=== PATIENT | female | born 1950 | race Caucasian/White ===

== ENCOUNTER 2016-04-23 09:12 | Emergency (ER) | payer MEDICARE, BC ==
[2016-04-23 10:52] VITALS: BP 144/82
--- NOTE | 2016-04-23 10:54 | ERNOTE ---
Medical Problem HPI - Narrative Date of Service: 04/23/16 - General Chief Complaint: General Assessment Time Seen by Provider: 04/23/16 10:35 Source: patient, RN notes reviewed Exam Limitations: no limitations - Immun/Allergies/Home Medications Immunizations: IMMUNIZATION HX Immunizations Up to Date No History of Influenza Vaccine No Hx Pneumococcal Vaccination Yes Allergies/Adverse Reactions: Allergies clindamycin Allergy (Verified 04/23/16 09:33) metronidazole Allergy (Verified 04/23/16 09:33) Sulfa (Sulfonamide Antibiotics) [Sulfa(Sulfonamide Antibiotics)] Allergy ( Verified 04/23/16 09:33) Home Medications: HOME MEDICATIONS Lansoprazole [Prevacid] 30 mg PO DAILY 04/25/12 [Last Taken Unknown] Sertraline HCl [Zoloft] 50 mg PO HS 04/25/12 [Last Taken 05/03/12 20:25] clonazePAM [Klonopin Generic] 1 mg PO HS 04/25/12 [Last Taken 04/05/12 20:30] metroNIDAZOLE [Metrogel 0.75%] 45 gm TP HS 04/25/12 [Last Taken Unknown] Acetaminophen [Tylenol] 650 mg PO Q4H PRN 05/04/12 [Last Taken 05/04/12 07:10] - History of Present History Narrative: 66 y/o female to ED for chills, sweats, body aches, sore throat and cough for 5 days. She had also been having diarrhea but this has subsided. She has taken various OTC cold and cough meds without improvement. She reports being concerned that she might have pneumonia as she feels much like she did when she had it a few years ago. She did not get a flu vaccine because she gets sick every time she gets one. Date (Duration): 04/19/16 Review of Systems - Review of Systems Constitutional: Present: chills, diaphoresis, fatigue, malaise EYE: Present: no symptoms reported ENT: Present: nose congestion, nasal drainage, sore throat. Absent: ear pain Respiratory: Present: shortness of breath, cough. Absent: wheezing Cardiology: Present: no symptoms reported Gastrointestinal/Abdominal: Present: nausea. Absent: vomiting, abdominal pain Genitourinary: Present: no symptoms reported Musculoskeletal: Present: muscle pain, joint pain Skin: Absent: rash, lesions Neurological: Present: headache. Absent: dizziness/light-headedness Endocrine: Present: no symptoms reported Hematologic/Lymphatic: Present: no symptoms reported Psych: Present: anxiety - Patient's Past Medical History Patient History - Medical: No pertinent hx Patient History - Cardiac/Respiratory: No pertinent hx Patient History - Cancer: No Hx of Cancer Patient History - Surgical Procedures: Hysterectomy Patient History - Other: None LMP (females 10-50): Menopausal - Social History Living Situations: home Psych History: No pertinent hx Smoking Status: Current every day smoker Cigarettes Packs Per Day: 0.8 Alcohol Use: none Drug Use: none - Immunizations Immunizations Up to Date: No Hx Pneumococcal Vaccination: Yes History of Influenza Vaccine: No Physical Exam - Physical Exam General Appearance: Present: wd/wn, alert, no apparent distress, anxious Eye Exam: Normal inspection: bilateral Ears, Nose, Throat: Present: hearing grossly normal, nasal congestion, pharyngeal erythema. Absent: abnormal TM (R), abnormal TM (L), sinus pain/ drainage, pharyngeal swelling Neck: Present: normal inspection, nontender, supple Respiratory: Present: no respiratory distress, no accessory muscle use, lungs clear, decreased breath sounds - mild, bilateral bases, expiration (prolonged) Cardiovascular/Chest: Present: regular rate, rhythm, no murmur, normal peripheral pulses Neurological Exam: Present: alert, oriented, normal mood/affect Skin Exam: Present: normal color, warm/dry ED Progress - Results and Orders Patient's Lab Results:: I have reviewed the patient's lab results. - Vital Signs Patient's Vital Signs:: I have reviewed the patient's vital signs. Vital Signs: Vital Signs 04/23/16 09:28 Temperature 37.4 C Pulse Rate 85 Respiratory 12 Rate Blood Pressure 142/67 O2 Sat by Pulse 95 Oximetry - Progress/Reassessment Chief Complaint: General Assessment Progress:: Unchanged Departure - Departure Clinical Impression: Influenza A Disposition: Home self-care Condition: Stable Instructions: Influenza, Adult, [id number] Additional Instructions: Tylenol and/or ibuprofen for pain/fever Nasal saline frequently Push fluids Robitussin DM (generic ok) for cough Follow up with your doctor if symptoms have not improved by the end of the week Referrals: Rashaun Plunkett DO [Primary Care Provider] -
--- OUTSIDE RECORDS SUMMARY | 2016-04-23 11:05 | XMS REPORT | Continuity of Care Document ---
:1950 Author Organization [facility] ([facility]) [place] [address] Phone [phone] Care Team Providers Name Role Phone Kathy Garcia Primary Care Provider [phone] Source Comments This disclosure is being made pursuant to the Care Everywhere program, applicable federal and state laws, and may not contain all informaitonavailable regarding this patient.[facility] ([facility]) Active Allergies and Adverse Reactions Allergen Noted Date Severity Reactions Comments Levofloxacin 12/20/2014 Nausea & Vomiting Metronidazole 12/20/2014 Nausea & Vomiting Sulfa (Sulfonamide Antibiotics) 12/20/2014 Urticaria (Hives) Current Medications Prescription Sig. Disp. Refills Start Date End Date Status estradiol (CLIMARA) Apply 0.0375 mg on Active 0.0375 mg/24 hr patch the skin every week SERTraline 50 mg tablet Take 50 mg by mouth Active daily clonazePAM 1 mg tablet Take 1 mg by mouth Active at bedtime multivitamin with Take 1 tablet by Active minerals tablet mouth daily nystatin-triamcinolone Apply topically 30 g 0 12/20/2014 Active 100,000-0.1 unit/gram-% Saturday and ointment PM estradiol (ESTRACE) Apply one inch tot 42.5 g 4 12/20/2014 Active 0.01 % vaginal cream he vaginal opening and just inside the vagina on Saturday, Saturday, Saturday. Active Problems Not on file Social History Tobacco Use Types Packs/Day Years Used Date Former Smoker Last Filed Vital Signs Vital Sign Reading Time Taken Blood Pressure 104/71 12/20/2014 9:19 AM CDT Pulse 72 12/20/2014 9:19 AM CDT Temperature 37 C (98.6 F) 12/20/2014 9:19 AM CDT Respiratory Rate - - Height 1.6 m (5' 3") 12/20/2014 9:19 AM CDT Weight 55.339 kg (122 lb) 12/20/2014 9:19 AM CDT Body Mass Index 21.62 12/20/2014 9:19 AM CDT Oxygen Saturation - - Plan of Care Health Maintenance Due Date Last Done Comments HCV Screening 1950 Hepatitis B Vaccine (1 of 3 - Primary Series) 1950 Tdap Vaccine 1962 Lipid Disorder Screening 1969 Td Vaccine 1969 Cervical Cancer Screening 1981 Mammogram 1991 Colonoscopy 01/10/2001 Zoster Vaccine 2011 Influenza Vaccine: Seasonal (#1) 10/03/2015 Osteoporosis Screening (DXA Bone Density) 01/12/2016 Pneumococcal Vaccine (1 of 2 - PCV13) 01/12/2016 Results from Last 3 Months Not on file
== END 2016-04-23 10:59 | disposition home or self-care (01) ==
LOC: ER 09:12
DX: J10.1 Influenza due to other identified influenza virus with other respiratory manifestations (principal); Z72.0 Tobacco use